=== PATIENT | male | born 1940 | race Caucasian/White ===

== ENCOUNTER 2023-03-08 12:49 | Emergency (ER) | payer OTHER ==
[2023-03-08 12:58] VITALS: BP 164/59; PULSE 64; RESP 18; TEMP 97.7; BMI 25.3
== END 2023-03-08 15:50 | disposition home or self-care (01) ==
LOC: JERFT 12:49
DX: M54.50 Low back pain, unspecified (principal); V43.62XA Car passenger injured in collision with other type car in traffic accident, initial encounter; Y92.488 Other paved roadways as the place of occurrence of the external cause
CPT/HCPCS: 71046-TC-FY; 72070-TC-FY; 72100-TC-FY; 99283-25